=== PATIENT | female | born 1950 | race Caucasian/White ===

== ENCOUNTER 2019-07-08 18:01 | Emergency (ER) | payer MEDICARE, BC ==
[2019-07-08] MEDS ORDERED: GI Cocktail Oral Solution 30 ML PO ONE (19:30)
--- NOTE | 2019-07-08 19:36 | EDM.PDOC ---
ED HPI GENERAL MEDICAL PROBLEM - General Chief Complaint: ENT Problem Stated Complaint: SOMETHING STUCK IN THROAT Time Seen by Provider: 07/08/19 19:20 Source of Information: Reports: Patient History Limitations: Reports: No Limitations - History of Present Illness INITIAL COMMENTS - FREE TEXT/NARRATIVE: Ed ambulatory with c/o something in her throat. Drinking tea from [employer] end of can and felt like swallowed something. Feel scratching sensation to left side of throat no difficulty with secretion, no difficulty breathing or talking. . No hx of allergies. has not eaten or drank any thing since onset of symptoms. Throat Pain Score (Numeric/FACES): 10 - Related Data Allergies Allergy/AdvReac Type Severity Reaction Status Date / Time No Known Allergies Allergy Verified 07/08/19 18:09 Home Meds: Home Meds Bisoprolol/Hydrochlorothiazide [Bisoprolol/HCTZ 5-6.25 MG] 1 tab PO DAILY [History] Gabapentin [Neurontin] 07/08/19 [History] Levothyroxine [Synthroid] 100 mcg PO ACBREAKFAST 07/08/19 [History] atorvaSTATin [Lipitor] 07/08/19 [History] metFORMIN [Glucophage XR] 500 mg PO BIDMEALS 07/08/19 [History] Past Medical History - Past Health History Medical/Surgical History: Denies Medical/Surgical History Social & Family History - Tobacco Use Smoking Status *Q: Never Smoker - Alcohol Use Days Per Week of Alcohol Use: 1 Number of Drinks Per Day: 1 Total Drinks Per Week: 1 - Recreational Drug Use Recreational Drug Use: No ED ROS ENT - Review of Systems Review Of Systems: ROS reveals no pertinent complaints other than HPI. ED EXAM, ENT - Physical Exam Exam: See Below Exam Limited By: No Limitations General Appearance: Alert, Anxious, Mild Distress Eye Exam: Bilateral Eye: EOMI Ears: Normal External Exam, Hearing Grossly Normal Nose: Normal Inspection Mouth/Throat: Normal Lips, Normal Teeth, Peritonsillar Mass (multiple tonsilar type stones left easily expresssed from multiple pockets. smaller similar on right. ). No: Bleeding, Lip Swelling, Muffled Voice, Tongue Swelling Head: Atraumatic, Normocephalic Respiratory/Chest: No Respiratory Distress, Lungs Clear, Normal Breath Sounds Cardiovascular: Normal Peripheral Pulses, Regular Rate, Rhythm GI/Abdominal: Normal Bowel Sounds, Soft Back: Full Range of Motion Extremities: Normal Inspection Neurological: Alert, Oriented, Normal Cognition Psychiatric: Normal Affect, Normal Mood Course - Vital Signs Last Recorded V/S: Last Vital Signs Temp 97.2 F 07/08/19 18:09 Pulse 70 07/08/19 18:09 Resp 18 07/08/19 18:09 BP 167/81 H 07/08/19 18:09 Pulse Ox 99 07/08/19 18:09 - Orders/Labs/Meds Meds: Medications Discontinued Medications Generic Name Dose Route Start Last Admin Trade Name Layne PRN Reason Stop Dose Admin Al Hydroxide/Mg Hydroxide 30 ml 07/08/19 19:30 07/08/19 19:53 Gi Cocktail PO 07/08/19 19:31 30 ml ONETIME ONE Administration - Radiology Interpretation Free Text/Narrative:: [facility] Final Radiology Report Call: [phone] assistance Online chat: [email or web address] Name: NIKKI FELDMAN Age: 69Years F Date: 07/08/2019 SSN: -- : [id number] Study: XR NECK SOFT TISSUE Requesting Physician: LYLE GALEANA Images: 2 Addl Studies: Provided Clinical History: Contrast: Contrast Medium: Contrast Amount: Contrast Method: CONFIDENTIALITY STATEMENT This report is intended only for use by the referring physician, and only in accordance with law. If you received this in error, call [phone]. Page 1 of 1 EXAM: XR Soft Tissue Neck EXAM DATE/TIME: 07/08/2019 7:11 PM CLINICAL HISTORY: 69 years old, female; Other: Feels like something got stuck in left side of throat after drinking out of can; Prior surgery TECHNIQUE: Imaging protocol: XR of the soft tissues of the neck. COMPARISON: No relevant prior studies available. FINDINGS: Airway: Normal. No abnormal narrowing. Soft tissues: Normal. Normal epiglottis. No radiopaque foreign body Bones/joints: C4-5 anterior cervical disc fusion. IMPRESSION: No acute findings. Thank you for allowing us to participate in the care of your patient. Dictated and Authenticated by: Emmett Whelan MD 07/08/2019 7:25 PM Central Time ([place] & [place]) - Re-Assessments/Exams Free Text/Narrative Re-Assessment/Exam: TC Dr Sav Garcia ED and Dr Andrea Garcia GI no immediate indications for bronch. Patient to follow up if not improving or worsening. Departure - Departure Time of Disposition: 21:25 Disposition: Home, Self-Care 01 Condition: Good Clinical Impression: Throat irritation - Discharge Information *PRESCRIPTION DRUG MONITORING PROGRAM REVIEWED*: No *COPY OF PRESCRIPTION DRUG MONITORING REPORT IN PATIENT GINA: No Instructions: Swallowed Foreign Body, Adult, [id number] Referrals: Geri Interiano MD [Primary Care Provider] - Forms: ED Department Discharge Additional Instructions: gargles tylenol or tramadol for discomfort chloraseptic as needed\ soft diet follow up if fever chills difficulty swallowing, difficulty breathing irritation sensation may continue 24 hours
== END 2019-07-08 21:32 | disposition home or self-care (01) ==
LOC: DL.ED 18:01
DX: J39.2 Other diseases of pharynx (principal)
CPT/HCPCS: 70360; 99283; A9270

== ENCOUNTER 2021-02-01 05:26 | Day surgery (SDC) | payer MEDICARE, BC ==
[2021-02-01] MEDS ORDERED: fentaNYL 100 MCG/2 ML SDV IV ONE ×3 (05:27→06:31)
[2021-02-01] MEDS ORDERED: Midazolam 1 MG/ML 2 ML SDV IV ONE ×5 (05:27→06:44)
[2021-02-01] MEDS ORDERED: Dextrose 5%-0.45% NaCl 1,000 ML IV SCH (05:30)
[2021-02-01] MEDS ORDERED: Sodium Chloride 0.9% 10 ML Syringe FLUSH PRN (05:30)
[2021-02-01] MEDS ORDERED: Midazolam 1 MG/ML 2 ML SDV ONE (06:09)
[2021-02-01] MEDS ORDERED: fentaNYL 100 MCG/2 ML SDV ONE (06:09)
--- NOTE | 2021-02-01 13:05 | LETTER ---
02/01/2021 RE: NIKKI FELDMAN : 1950 Geri Interiano MD [address] [place] [address] Interiano: Ms. Nikki Whelanjarrettelizabeth had colonoscopic examination done this morning, and she tolerated the procedure well. I herewith send a copy of the endoscopy note and photographs for your review. Thank you. Sincerely, [facility] /[id number]
--- NOTE | 2021-02-01 13:20 | OR ---
DATE: 02/01/2021 PROCEDURE: Total colonoscopy and multiple cold snare polypectomies. INSTRUMENT USED: PCF-H190DL Olympus video colonoscope. PREMEDICATIONS: Fentanyl 100 mcg intravenous, Versed 3 mg intravenous. Nasal O2 cannula. The procedure was done under pulse oximetry, BP recording, and child monitor. INDICATION: Screening colonoscopic examination was done for detection of any polypoid lesions and removal, endoscopic hemostasis therapy if needed. DESCRIPTION OF PROCEDURE: Initial rectal exam showed external hemorrhoidal tags. Rigid anoscopy was normal. The colonoscope was passed with ease. Numerous scattered diverticula were noted in the distal left colon along with some deformity. The colonoscope was passed with ease up to the ileocecal area. Photographs were taken of the normal-appearing cecum, identified by landmarks of appendiceal orifice and double-bulged ileocecal folds. In the proximal descending colon, 2 benign-appearing diminutive polyps were noted, photographs were taken. Multiple cold snare polypectomies were done, the tissues were retrieved and sent for histopathology. No bleeding was noted from any of the visualized areas at the commencement of the examination. The bowel preparation was found to be adequate, Newton scale 3 in all the regions, total score 9. No stricture. No vascular ectasia. No large isolated ulcerations seen. No evidence of diffuse inflammatory bowel disease in the form of friability, contact bleeding, or ulcerations. Probing the proximal sides of folds and flexures using adequate distention and clearing up the stool material, withdrawal of the scope was made, cecum to rectum time over 6 minutes. No bleeding was noted from any of the visualized areas at the completion of examination. IMPRESSION: 1. External hemorrhoids. 2. Colonic diverticulosis. 3. Diminutive descending colon polyps. The patient tolerated the procedure well. [facility] /[id number]
== END 2021-02-01 08:58 | disposition home or self-care (01) ==
LOC: DL.ENDO 05:26
PROVIDERS: ATTEND Internal Medicine Gastroenterology
DX: Z12.11 Encounter for screening for malignant neoplasm of colon (principal); D12.4 Benign neoplasm of descending colon; K57.30 Diverticulosis of large intestine without perforation or abscess without bleeding; K64.4 Residual hemorrhoidal skin tags; E66.09 Other obesity due to excess calories; Z68.41 Body mass index [BMI] 40.0-44.9, adult; I10 Essential (primary) hypertension; E11.9 Type 2 diabetes mellitus without complications; E03.9 Hypothyroidism, unspecified; Z98.890 Other specified postprocedural states
CPT/HCPCS: 45385; 88305; J2250; J3010; J7042